=== PATIENT | female | born 1995 | race Caucasian/White ===

== ENCOUNTER 2017-02-07 16:45 | Emergency (ER) | payer OTHER ==
[~2017-02-07 16:45] MED LIST: ALLERGY PILL; AMOXICILLIN PO; ANUSOL-HC CREAM30 G1 TOP; BACITRACIN30 GM TOP; BACTRIM DS TABL1 TA1 PO; BACTRIM DS TABL1 TA2 PO; BENTYL20 MG PO; CARAFATE1 G PO; COLACE PO; DICLOFENAC PO; KEFLEX PO; MOTRIN600 MG; NO MEDICATIONS; PEPCID PO; PHENERGAN25 M1 DOB; PHENERGAN25 MG PO; PREDNISONE10 MG/DOSE PO; PROCTOCREAM-HC30 GM PR; PROZAC; ROBITUSSIN S/F118 ML PO; SLEEPING MED
[2017-02-07] MEDS ORDERED: TRAZODONE (16:51)
[2017-02-07] MEDS ORDERED: PRILOSEC (16:51)
[2017-02-07] MEDS ORDERED: ZYRTEC (16:52)
== END 2017-02-07 18:10 | disposition home or self-care (01) ==
LOC: SED 16:45
DX: L03.113 Cellulitis of right upper limb (principal); K21.9 Gastro-esophageal reflux disease without esophagitis; F17.210 Nicotine dependence, cigarettes, uncomplicated
CPT/HCPCS: 99282

== ENCOUNTER 2017-02-22 21:47 | Emergency (ER) | payer OTHER ==
[~2017-02-22] VITALS: Ht 160 cm; Wt 104.3 kg
[~2017-02-22 21:47] MED LIST changes: +PRILOSEC; +TRAZODONE; +ZYRTEC
[2017-02-22 22:59] LABS: BASOPHIL# 0.1 X10e3 (0-0.3); BASOPHIL% 1.5 % (0-2.5); EOSINOPHIL# 0.3 X10e3 (0-0.7); EOSINOPHIL% 2.6 % (0.0-7.0); HEMATOCRIT 38.2 % (35.0-45.0); HEMOGLOBIN 12.8 gm/dL (12.0-16.0); LYMPHOCYTE% 29.5 % (17.0-45.0); MEAN CELL VOLUME 80.4 FL (83-96); MEAN CORPUSCULAR HEMOGLOBIN 26.8 PG (28-34); MEAN CORPUSCULAR HGB CONC 33.4 g/dL (30-36); MEAN PLATELET VOLUME 8.8 FL (6.5-11.5); MONOCYTE# 0.6 X10e3 (0-1.0); MONOCYTE% 6.4 % (3.0-12.0); NEUTROPHIL# 6.1 X10e3 (1.5-7.1); PLATELET COUNT 279 X10e3 (140-420); RED BLOOD COUNT 4.75 X10e (3.90-5.30); RED CELL DISTRIBUTION WIDTH 13.9 % (11.0-15.5); WHITE BLOOD COUNT 10.1 X10e3 (4.0-10.5)
[2017-02-22 23:00] LABS: DIFF IND NO
[2017-02-22 23:01] LABS: URINE SOURCE CLEAN CATCH
[2017-02-22 23:05] LABS: URINE APPEARANCE CLEAR; URINE BILIRUBIN NEG (NEG); URINE BLOOD NEG (NEG); URINE COLOR YELLOW; URINE GLUCOSE NEG (NORM); URINE KETONE NEG (NEG); URINE LEUKOCYTE ESTERASE TRACE (NEG); URINE NITRATE NEG (NEG); URINE PROTEIN NEG (NEG)
[2017-02-22 23:09] LABS: MICRO INDICATED? YES
[2017-02-22 23:13] LABS: CULTURE INDICATED? YES; URINE BACTERIA 1+ (NEG); URINE RBC 0-2 /[HPF] (0-2); URINE SQUAMOUS EPITHELIAL CELL MODERATE /[HPF]
[2017-02-22 23:26] LABS: ALBUMIN SERUM 4.2 g/dL (3.5-5.0); ALKALINE PHOSPHATASE 69 U/L (32-92); ALT (SGPT) 19 U/L (10-40); AST (SGOT) 16 U/L (10-42); BILIRUBIN,TOTAL 0.4 mg/dL (0.2-2.0); BLOOD UREA NITROGEN 12 mg/dL (9-23); CALCIUM SERUM 9.1 mg/dL (8.4-10.2); CARBON DIOXIDE 26 mmol/L (22-31); CHLORIDE 103 mmol/L (100-111); CREATININE SERUM 0.8 mg/dL (0.6-1.4); GLUCOSE FASTING 108 mg/dL (70-110); LIPASE 29 U/L (22-51); POTASSIUM 3.9 mmol/L (3.5-5.1); PROTEIN TOTAL SERUM 7.7 g/dL (6.0-8.3); SODIUM 137 mmol/L (135-145)
[2017-02-22 23:28] LABS: BILIRUBIN, DIRECT <0.1 mg/dL (0.0-0.2); BILIRUBIN,INDIRECT 0.3 mg/dL (0.0-0.9)
== END 2017-02-22 23:46 | disposition home or self-care (01) ==
LOC: SED 21:47
PROVIDERS: Student in an Organized Health Care Education/Training Program
DX: M54.5 Low back pain (principal); R51 Headache; R10.11 Right upper quadrant pain; K21.9 Gastro-esophageal reflux disease without esophagitis; F17.200 Nicotine dependence, unspecified, uncomplicated
CPT/HCPCS: 36415; 80048; 80076; 81003; 83690; 84703; 85025; 87086; 99284

== ENCOUNTER → 2017-02-25 | Outpatient (CLI) | payer OTHER ==
--- NOTE | ~2017-02-25 | CR181 ---
[facility] A Service of [facility] RADIOLOGY TEXT RESULTS PATIENT: MELLO KWON LOCATION: [facility] : [birth year] UNIT #: [id number] AGE: [address]: Angélica Figueredo SEX: F ORDER DR: [id number] [place] [id number] O MR#: [id number] #: [id number] NAME: MELLO KWON : 1995 SEX: F STUDY DATE/TIME: 02/25/2017 13:04 UNIT: [facility] ROOM: STUDY DESCRIPTION: CR Lumbar Spine 2 or 3 Views Attending Physician: Angélica Figueredo A.P.R.N. Referring Physician: Angélica Figueredo A.P.R.N. Ordering Physician: Angélica Figueredo A.P.R.N. Primary Care Physician: Angélica Figueredo A.P.R.N. MEDICAL IMAGING REPORT This report is preliminary unless electronic signature is present. EXAM Lumbar spine 2 or 3 views HISTORY Low back pain for 1 week, center of the low back. No known injury. COMMENT AP, lateral, lumbosacral views lumbar spine reviewed. There is mild exaggeration of lumbar lordosis and I suspect about 2 mm of degenerative anterolisthesis of L4 on L5 secondary to facet arthritis. There is no bone destruction or acute fracture suspected. There is relative preservation of intervertebral disc heights. IMPRESSION 1. Mild exaggeration of lumbar lordosis with suspicion of about 2 mm of degenerative anterolisthesis of L4 on L5 secondary to facet arthritis. No acute fracture. Dictated by... Sheron Sellers M.D. THIS IS AN ELECTRONICALLY VERIFIED REPORT Sehron Sellers M.D. at 03/02/2017 5:44 PM SAC/psc TD: 03/02/2017 14:38 JOB #: [id number] MEDICAL IMAGING REPORT Page 1 of 1
== END | disposition home or self-care (01) ==
LOC: SRAD 12:59
DX: M54.5 Low back pain (principal); M40.56 Lordosis, unspecified, lumbar region; M46.96 Unspecified inflammatory spondylopathy, lumbar region
CPT/HCPCS: 72100

== ENCOUNTER 2017-03-14 17:49 | Emergency (ER) | payer OTHER ==
[~2017-03-14] VITALS: Ht 160 cm; Wt 104.3 kg
== END 2017-03-14 20:16 | disposition home or self-care (01) ==
LOC: SED 17:49
DX: M54.5 Low back pain (principal); G89.29 Other chronic pain; F17.210 Nicotine dependence, cigarettes, uncomplicated; K21.9 Gastro-esophageal reflux disease without esophagitis
CPT/HCPCS: 99283